=== PATIENT | female | born 1975 | race Caucasian/White ===

== ENCOUNTER 2021-08-23 12:46 | Emergency (ER) | payer MEDICAID ==
[~2021-08-23] VITALS: Ht 157.5 cm; Wt 99.1 kg
[2021-08-23 13:44] LABS: BASOPHILS # (AUTO) 0.1 X10'3 (0-0.2); BASOPHILS % (AUTO) 0.7 % (0-1); EOSINOPHILS # (AUTO) 0.1 X10'3 (0-0.9); EOSINOPHILS % (AUTO) 1.4 % (0-6); HEMATOCRIT 42.3 % (35.0-45.0); HEMOGLOBIN 14.4 g/dl (12.0-16.0); LYMPHOCYTES # (AUTO) 0.8 X10'3 (1.1-4.8); LYMPHOCYTES % (AUTO) 8.3 % (21-51); MEAN CORPUSCULAR HEMOGLOBIN 27.3 PG (27.0-31.0); MEAN CORPUSCULAR VOLUME 80.2 FL (78-98); MEAN PLATELET VOLUME 8.2 FL (7.4-10.4); MONOCYTES # (AUTO) 1.1 X10'3 (0-0.9); MONOCYTES % (AUTO) 12.3 % (2-12); NEUTROPHILS # (AUTO) 7.2 X10'3 (1.8-7.7); NEUTROPHILS % (AUTO) 77.3 % (42-75); PLATELET COUNT 468 X10'3 (140-440); RED BLOOD COUNT 5.27 X10'6 (4.20-5.60); WHITE BLOOD COUNT 9.4 X10'3 (4.5-11.0)
--- NOTE | 2021-08-23 13:54 | NUR ---
NURSE REQUESTED FOR PATIENT TO GIVE URINE SPECIMEN. PATIENT REFUSES TO USE PORTABLE TOILET IN THE RAP AREA. PROVIDER NOTIFIED.
--- NOTE | 2021-08-23 13:56 | NUR ---
NURSE IS ATTEMPTING TO OBTAIN INFORMATION ABOUT PAST AND PRESENT ILLNESS. PATIENT IS NOT COOPERATING WITH NURSE QUESTIONS, SO INTERVENTION ABOUT PAST MEDICAL HISTORY IS INCOMPLETE.
[2021-08-23 14:00] LABS: ALANINE AMINOTRANSFERASE 63 U/L (12-78); ALBUMIN 2.8 G/DL (3.4-5.0); ALBUMIN/GLOBULIN RATIO 0.6 (1.1-1.5); ALKALINE PHOSPHATASE 114 IU/L (46-116); ANION GAP 13 (8-16); ASPARTATE AMINO TRANSFERASE 29 U/L (10-37); BILIRUBIN,TOTAL 1.3 MG/DL (0.1-1.0); BLOOD UREA NITROGEN 9 MG/DL (7-18); CALCIUM 8.8 MG/DL (8.5-10.1); CHLORIDE 100 MMOL/L (99-107); GLUCOSE 108 MG/DL (70-104); POTASSIUM 3.5 MMOL/L (3.5-5.1); SODIUM 139 MMOL/L (135-145); TOTAL CARBON DIOXIDE 25.6 MMOL/L (24-32); TOTAL PROTEIN 7.7 G/DL (6.4-8.2); eGFR > 90 ML/MIN
[2021-08-23 14:11] LABS: MAGNESIUM 2.2 MG/DL (1.5-2.4)
[2021-08-23] MEDS ORDERED: normal saline 1000ML IV soln IVB ONE (14:50)
--- NOTE | 2021-08-23 15:41 | NUR ---
PATIENT WAS GONE FROM RAP AREA EARLIER AND MARKED ELOPE/LWOBS. PATIENT IS BACK IN RAP AREA AND REINSTATED TO ER STATUS WITH MD.
[2021-08-23] MEDS ORDERED: iohexol 350MG/ML 100ml bottle IV ONE (16:13)
[2021-08-23 17:55] LABS: URINE HCG NEGATIVE (NEG)
[2021-08-23 18:28] LABS: COLOR,URINE BROWN (Yellow); UA COLLECTION TYPE CLN CATCH MIDSTREAM
[2021-08-23 18:29] LABS: CLARITY,URINE CLOUDY (Clear); GLUCOSE, URINE NEGATIVE (Neg); PROTEIN,URINE 30 mg/dl (Neg)
[2021-08-23 18:30] LABS: KETONES,URINE >=80 mg/dl (Neg); NITRITES, URINE NEGATIVE (Neg); OCCULT BLOOD,URINE LARGE (Neg)
[2021-08-23 18:31] LABS: LEUKOCYTE ESTERASE ,URINE NEGATIVE (Neg)
[2021-08-23 18:39] LABS: BACTERIA,URINE NONE SEEN /HPF (Neg); MUCUS STRANDS MANY /LPF (Neg); RBC,URINE TNTC /HPF (0-2); SQUAMOUS EPITHELIAL CELL,UR FEW /LPF (FEW); WBC,URINE NONE SEEN /HPF (0-4)
[2021-08-23] MEDS ORDERED: dexamethasone sod phosphate 10mg/ml inj IV STA (19:20)
[2021-08-23] MEDS ORDERED: CASIRIVIMAB/IMDEVIMAB inject. 10 ML in normal saline 100ml IV soln 100 ML IV ONE (19:20)
[2021-08-23] MEDS ORDERED: BAMLANIVIMAB 700MG, ETESEVIMAB 1,400MG in NS 100mL (Total vol 160ml) IV ONE (19:25)
[2021-08-23] MEDS ORDERED: DEXA6TAB PO (19:26)
[2021-08-23 21:28] VITALS: BP 161/95
== END 2021-08-23 21:29 | disposition home or self-care (01) ==
LOC: ER 12:50
DX: U07.1 COVID-19 (principal); J12.82 Pneumonia due to coronavirus disease 2019; R09.02 Hypoxemia; R51.9 Headache, unspecified; N93.9 Abnormal uterine and vaginal bleeding, unspecified; R53.1 Weakness; E86.0 Dehydration; R06.02 Shortness of breath; J45.909 Unspecified asthma, uncomplicated
CPT/HCPCS: 36415; 71045; 71275; 80053; 81001; 81025; 83605; 83735; 84145; 84443; 85025; 85379; 93005; 96361; 96374; 99285; J1100; J3490; J7030; M0245; Q0245; Q9967; Q0239